=== PATIENT | male | born 1955 | race Caucasian/White ===

== ENCOUNTER 2018-12-06 13:01 | Emergency (ER) | payer BC, SELFPAY ==
[2018-12-06 13:02] VITALS: BP 93/63; PULSE 60; RESP 18; TEMP 36.6; O2SAT 92; BMI 29.5
--- NOTE | 2018-12-06 13:24 | RAD_ITS ---
STUDY: X-RAY CHEST REASON FOR EXAM: Male, 63 years old. Chest pain TECHNIQUE: Frontal view COMPARISON: None. FINDINGS: The lungs are clear and expanded. There is no demonstrated pleural abnormality. Normal size heart. Normal mediastinum and amita. Normal visualized pulmonary arteries. Normal visualized aortic arch and descending thoracic aorta. Normal visualized thoracic spine. Normal visualized ribs, clavicles, and shoulders. There is no demonstrated abnormality of the visualized soft tissue structures of the upper abdomen. RAD/Chest 1 View (Portable) IMPRESSION: Normal x-ray examination of the chest. Electronically Signed: Giovany Gilliland DO at 13:47 EDT Tel [phone], Service support ,
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
--- NOTE | 2018-12-06 13:24 | EKG12_ITS ---
Test Reason : CP Blood Pressure : / mmHG Vent. Rate : 057 BPM Atrial Rate : 057 BPM P-R Int : 192 ms QRS Dur : 084 ms QT Int : 468 ms P-R-T Axes : 028 -16 013 degrees QTc Int : 455 ms Sinus bradycardia Possible Left atrial enlargement Left ventricular hypertrophy Abnormal ECG Confirmed by CLARK ACE, JOSE ([id number]), legal editor ROBERT GUEVARA ([id number]) on 12/14/2018 1:24:57 PM Referred By: GAETANO Confirmed By:PEMA RODAS MD
[2018-12-06] MEDS: 0.9% Normal Saline 1,000 ML 999 ML IV (13:35)
[2018-12-06 13:37] LABS: Absolute Lymphocyte Count 3.19 X10^3/uL (0.83-4.51); Absolute Neutrophil Count 3.8 X10^3/uL (2.0-7.7); Basophil# 0.02 X10^3/uL; Basophil% 0.3 % (0-1); Eosinophil# 0.16 X10^3/uL; Hematocrit 40.8 % (40-54); Hemoglobin 14.4 g/dL (13.0-16.5); Lymphocyte # 3.19 X10^3/ul (4.0); Lymphocyte % 40.3 % (19-41); Mean Corp Hgb Conc 35.3 g/dL (32-36); Mean Corpuscular Hgb 33.4 pg (27.0-32.0); Mean Corpuscular Volume 94.7 fL (80-94); Mean Platelet Vol. 9.8 fl (6.2-12.0); Monocyte# 0.72 X10^3/uL; Monocyte% 9.1 % (0-10); NRBC Flagged by Analyzer 0 % (0-5); Neutrophil % 47.9 % (47-70); Platelet Count 240 K/mm3 (150-450); RBC Distribution Width CV 12.6 % (11.6-14.6); RBC Distribution Width SD 43.8 fl (35.1-43.9); Red Blood Count 4.31 M/mm3 (4.6-6.2); White Blood Count 7.9 K/mm3 (4.4-11.0)
[2018-12-06 13:52] LABS: Anion Gap 6 (5-15); BUN 17 mg/dL (7-18); Calcium,Total 8.7 mg/dL (8.5-10.1); Chloride 105 mmol/L (98-107); Creatinine, Serum 1.31 mg/dL (0.70-1.30); EST Glomerular Filtration Rate 59 mL/min (>60); Est Glom Filt Rate - Afr Amer 72 mL/min (>60); Estimated Creatinine Clearance 61.14 ml/min; Glucose 116 mg/dL (74-106); Potassium 3.4 mmol/L (3.5-5.1); Sodium Level 138 mmol/L (136-145)
[2018-12-06 14:05] VITALS: BP 103/59; PULSE 49; RESP 19; O2SAT 96
--- NOTE | 2018-12-06 14:57 | ED.DEP ---
ED Disposition - Plan for ED Patient: Disposition: Home or Assisted Living Instructions: [facility], [facility] Referrals: Asiya Padilla [Other] - Keep Dilma appointment Additional Instructions: Your labs and loop recorder were normal today. When I spoke to the [employer] rep he said at night your heart rate will drop in the 40s but when you passed out today he did not see anything abnormal. Your blood pressure is running low today. Make sure you are drinking plenty of fluids today. Take it easy at home. Do not take any more blood pressure medications today or tomorrow unless your blood pressure is running greater than 120. Follow-up with your scheduled doctor's tomorrow.
[2018-12-06 15:12] VITALS: BP 105/63; PULSE 53; RESP 15; O2SAT 97
--- NOTE | 2018-12-06 15:14 | ED.RN ---
PT AND PATIENT EDUCATED ON WRITTEN AND VERBAL DISCHARGE INSTRUCTIONS. PT VERBALIZES UNDERSTANDING AND DENIES ANY FURTHER QUESTIONS. PT HAS SCHEDULED APPOINTMENT TO FOLLOW UP WITH TOMORROW. PT IV D/C AND COVERED WITH 2X2 GAUZE DRESSING AND PAPER TAPE. PT DRESSES SELF AND AMBULATES OUT OF DEPT WITH .
== END 2018-12-06 15:16 | disposition home or self-care (01) ==
PROVIDERS: Emergency Provider Emergency Medicine
DX: R55 Syncope and collapse (principal); I95.9 Hypotension, unspecified; I10 Essential (primary) hypertension; R00.1 Bradycardia, unspecified; Z79.82 Long term (current) use of aspirin; Z79.899 Other long term (current) drug therapy; Z87.891 Personal history of nicotine dependence
CPT/HCPCS: 71045; 80048; 84484; 85025; 93005; 96360; 96361; 99284; J7030; A4216